=== PATIENT | female | born 1995 | race Caucasian/White ===

== ENCOUNTER 2018-08-01 09:31 | Emergency (ER) | payer BC ==
[2018-08-01 11:46] LABS: Bilirubin Negative (Negative); Blood, Urine Negative (Negative); Clarity Clear (Clear); Glucose, Urine (Dipstick) Negative (Negative); Leukocyte Negative (Negative); Nitrite Negative (Negative); Pregnancy Test - Urine (BHCG) Negative (Negative); Pregu Control Background? CLEAR/WHITE (CLR/WHITE); Pregu Control Bar Appear? YES (CONTROL BAR); Protein, Urine (Dipstick) Negative (Neg-Trace); Specific Gravity 1.015 (1.002-1.036); Specific Gravity, Urine 1.015 (1.005-1.030); Urobilinogen 0.2 mg/dL (0.2-1.0); pH, Urine 7.5 (5.0-9.0)
[2018-08-01 12:12] LABS: #Lymphocytes 1.8 thou/uL (1.20-3.40); #Monocytes 0.3 thou/uL (0.11-0.59); #Neutrophils 2.5 thou/uL (1.40-6.50); %Basophils 0.8 % (0.0-1.0); %Eosinophils 0.6 % (0.0-10.0); %Lymphocytes 38.9 % (21.0-51.0); %Monocytes 6.4 % (0.0-10.0); %Neutrophils 53.4 % (42.0-75.0); Hemoglobin 13.6 g/dL (12.0-16.0); Mean Corpuscular HGB CONC 31.1 g/dL (32.0-36.0); Mean Corpuscular Hemoglobin 28.4 pg (27.0-31.0); Mean Corpuscular Volume 91.2 fL (78.0-98.0); Mean Platelet Volume 7.5 fL (7.4-10.4); Platelet Count 199 thou/uL (130-400); RBC Distribution Width 12.2 % (11.5-14.5); White Blood Cell (WBC) Count 4.7 thou/uL (4.8-10.8)
[2018-08-01 12:25] LABS: Anion Gap 14 mmol/L (10-20); BUN (Urea Nitrogen) 10 mg/dL (7.0-18.7); Calc. Creatinine Clearance 0 mL/min (70-130); Calcium 9.5 mg/dL (7.8-10.44); Carbon Dioxide 22 mmol/L (22-29); Chloride 107 mmol/L (98-107); Estimated GFR-MDRD Greater than 90; Glucose 82 mg/dL (70-105); Potassium 3.9 mmol/L (3.5-5.1); Sodium 139 mmol/L (136-145)
== END 2018-08-01 12:35 | disposition home or self-care (01) ==
LOC: BURERS 09:31
DX: R55 Syncope and collapse (principal); F41.9 Anxiety disorder, unspecified
CPT/HCPCS: 36415; 80048; 81003; 81025; 84484; 85025; 93005

== ENCOUNTER 2018-08-22 08:31 | Outpatient (CLI) | payer BC ==
--- NOTE | 2018-08-22 18:48 | RAD ---
CERVICAL SPINE COMPLETE: 08/22/18 Multiple views are provided, including oblique views and flexion and extension lateral views. No fracture, dislocation or disc space narrowing was seen. There are no bony anomalies. The C1 to den s distance is normal and the soft tissues are normal in thickness. Oblique views show the foramina to be patent throughout. Flexion and extension views show no abnormal motion of the cervical spine. IMPRESSION: No significant findings. POS: HOME
--- NOTE | 2018-08-22 18:49 | RAD ---
LUMBAR SPINE THREE VIEWS: 08/22/18 No fracture, disc space narrowing, or bony anomaly was seen. No pars defects were noted. The SI joint s appear normal. IMPRESSION: No acute finding. POS: HOME
== END 2018-08-22 08:32 | disposition home or self-care (01) ==
LOC: BURRAD 08:31
PROVIDERS: ATTEND Internal Medicine Rheumatology
DX: M54.2 Cervicalgia (principal); M54.5 Low back pain
CPT/HCPCS: 72052; 72100